=== PATIENT | female | born 1990 | race African-American/Black ===

== ENCOUNTER 2017-06-30 14:31 | Inpatient (IN) | payer MEDICAID, OTHER ==
[~2017-06-30] VITALS: Ht 172.7 cm; Wt 123.8 kg
[~2017-06-30 14:31] MED LIST: FERR-55 PO
[2017-06-30] MEDS ORDERED: ONDANSETRON (ODT) 4 MG TAB ODT STA (16:29)
[2017-06-30] MEDS ORDERED: HYDROCODONE/APAP (5/325) TAB PO ONE (16:30)
[2017-06-30 17:14] LABS: ABNORMAL IP MESSAGE 1; HEMATOCRIT 23.8 % (37.0-47.0); MEAN CORPUSCULAR HEMOGLOBIN 15.3 pg (29.0-33.0); MEAN CORPUSCULAR HGB CONC 26.1 g/dl (32.0-37.0); MEAN CORPUSCULAR VOLUME 58.8 fl (82.0-101.0); PLATELET COUNT 323 10^3/UL (140-415); RED BLOOD COUNT 4.05 10^6/ul (4.20-5.40); RED CELL DISTRIBUTION WIDTH 19.9 % (11.5-14.5); WHITE BLOOD COUNT 5.2 10^3/ul (4.8-10.8)
[2017-06-30 17:17] LABS: HEMOGLOBIN 6.2 g/dl (12.0-16.0); MEAN PLATELET VOLUME 9.7 fl (7.4-10.4); POSITIVE DIFF @See below
[2017-06-30 17:33] LABS: ALBUMIN 4.4 g/dl (3.3-4.9); ALBUMIN/GLOBULIN RATIO 1.22; CALCIUM 9.2 mg/dl (8.4-10.2); CREATININE 0.77 mg/dl (0.44-1.00); POTASSIUM 4.4 mmol/L (3.5-5.1)
[2017-06-30 17:55] LABS: ANISOCYTOSIS 2+ (0-0); EOSINOPHILS % (M) 1 % (0-7); ERYTHROBLAST% (NRBC) (M) 2 % (0-0); HYPOCHROMASIA 3+ (0-0); MICROCYTOSIS 3+ (0-0); MONOCYTES % (M) 2 % (0-11); OVALOCYTES 1+ (0-0); PLATELET ESTIMATE NORMAL; POIKILOCYTOSIS 2+ (0-0); POLYCHROMASIA 2+ (0-0)
--- NOTE | 2017-06-30 18:04 | ERA ---
ER Documentation Chief Complaint Date/Time DATE: 06/30/17 TIME: 17:53 Chief Complaint DIZZY X 2 WEEKS HPI This is a 27-year-old female with a history of menorrhagia, ovarian cysts and chronic anemia requiring previous transfusions who is presenting with dizziness for the last 3 weeks, waxing and waning. Her last menstrual period was approximately 3 weeks ago, immediately prior to the onset of her lightheadedness and dizziness. She does not like going to the emergency department, but her symptoms had persisted, which is what prompted the visit today. She has had similar episodes in the past that were related to anemia that required transfusion. She endorses very mild generalized abdominal discomfort earlier today, but this is currently resolved. She also endorses a mild right sided headache with nausea but no vomiting. She denies vision changes. She denies chest pain or trouble breathing. She does endorse mild lightheadedness. She has had no changes to bowel movements or urination. ROS All systems reviewed and are negative except as per history of present illness. Medications Home Meds Discontinued Reported Medications [none] No Conflict Check no home meds per pt 04/19/11 Discontinued Scripts Ferrous Sulfate* (Ferrous Sulfate*) 325 Mg Tablet, 325 MG PO BID, #60 TAB 3 Refills Prov:AMARILIS JACOBS 08/15/15 Allergies Allergies: Coded Allergies: No Known Allergies (Verified Allergy, Mild, 06/30/17) PMhx/Soc Medical and Surgical Hx: pt denies Surgical Hx History of Surgery: No Anesthesia Reaction: No Hx Neurological Disorder: No Hx Respiratory Disorders: No Hx Cardiac Disorders: No Hx Psychiatric Problems: No Hx Miscellaneous Medical Probl: Yes (Anemia, menorrhagia, ovarian cysts) Hx Alcohol Use: Yes (Occassionally) Hx Substance Use: No Hx Tobacco Use: No FmHx Family History: No diabetes Physical Exam Vitals Vital Signs Date Time Temp Pulse Resp B/P Pulse Ox O2 Delivery O2 Flow Rate FiO2 06/30/17 19:30 71 17 121/73 100 Room Air 06/30/17 18:46 73 19 126/72 100 Room Air 06/30/17 14:52 98.0 98 18 135/86 99 Physical Exam Const: No apparent distress, well-developed, well-nourished Head: Atraumatic Eyes: Normal Conjunctiva ENT: Normal External Ears, Nose and Mouth. Neck: Full range of motion..~ No meningismus. Resp: Clear to auscultation bilaterally Cardio: Regular rate and rhythm, no murmurs Abd: Soft, non tender, non distended, morbid obesity. Normal bowel sounds Skin: No petechiae or rashes Back: No midline or flank tenderness Ext: No cyanosis, or edema Neur: Awake and alert, normal sensation, normal strength Psych: Normal Mood and Affect Result Diagram: 06/30/17 1645 06/30/17 1645 Results 24 hrs Laboratory Tests Test 06/30/17 16:45 06/30/17 19:20 White Blood Count 5.210^3/ul Red Blood Count 4.0510^6/ul Hemoglobin 6.2g/dl Hematocrit 23.8% Mean Corpuscular Volume 58.8fl Mean Corpuscular Hemoglobin 15.3pg Mean Corpuscular Hemoglobin Concent 26.1g/dl Red Cell Distribution Width 19.9% Platelet Count 85049^3/UL Mean Platelet Volume 9.7fl Segmented Neutrophils % (Manual) 61% Lymphocytes % (Manual) 36% Monocytes % (Manual) 2% Eosinophils % (Manual) 1% Nucleated Red Blood Cells % 2% Absolute Lymphocytes (Manual) 1.810^3/ul Absolute Monocytes (Manual) 0.110^3/ul Platelet Estimate NORMAL Polychromasia 2+ Hypochromasia 3+ Poikilocytosis 2+ Anisocytosis 2+ Microcytosis 3+ Ovalocytes 1+ Sodium Level 143mmol/L Potassium Level 4.4mmol/L Chloride Level 108mmol/L Carbon Dioxide Level 26mmol/L Anion Gap 13 Blood Urea Nitrogen 10mg/dl Creatinine 0.77mg/dl Glucose Level 94mg/dl Calcium Level 9.2mg/dl Total Bilirubin 0.0mg/dl Direct Bilirubin 0.00mg/dl Indirect Bilirubin 0.0mg/dl Aspartate Amino Transf (AST/SGOT) 22IU/L Alanine Aminotransferase (ALT/SGPT) 34IU/L Alkaline Phosphatase 131IU/L Troponin I < 0.012ng/ml Total Protein 8.0g/dl Albumin 4.4g/dl Globulin 3.60g/dl Albumin/Globulin Ratio 1.22 Lipase 160U/L Prothrombin Time 14.2Sec Prothrombin Time Ratio 1.1 INR International Normalized Ratio 1.10 Activated Partial Thromboplast Time 29.7Sec Current Medications Medications (Trade) Dose Ordered Sig/Brian Route PRN Reason Start Time Stop Time Status Last Admin Dose Admin Acetaminophen/ Hydrocodone Bitart ([place] (5/325)) 1 tab ONCE ONCE PO 06/30/17 16:30 06/30/17 16:31 DC 06/30/17 16:45 Ondansetron HCl (Zofran Odt) 4 mg ONCE STAT ODT 06/30/17 16:29 06/30/17 16:31 DC 06/30/17 16:45 Procedures/MDM MDM Patient's presentation warrants further investigation. I am concerned of anemia in this patient. An EKG and blood work will be completed. The patient does not endorse rectal bleeding, and I do not suspect a GI bleed in this patient. I do not intend to perform a rectal exam at this time. Patient has no hemoptysis or hematemesis. She has no external skin findings. She has no signs of hematoma. LABS The patient's blood work was obtained and reviewed. The patient seemed shows no leukocytosis or left shift. The patient is afebrile, and I do not suspect a systemic infection. The patient is significantly anemic today with a hemoglobin of 6.2 that will require a transfusion.. The patient's platelet count is unremarkable. The patient's CMP shows no signs of metabolic or electrolyte abnormality. The patient has normal renal and hepatic function testing. EKG EKG read by me: Rate/Rhythm: Regular rhythm, sinus tachycardia at a rate of 109 Intervals: Normal [place]: Normal Impression: No evidence of acute ischemia TREATMENT/DISPOSITION The patient has anemia. Her tachycardia is likely correlated with anemia. Fortunately, the rest of her vital signs are stable, and her tachycardia actually improved on its own. Given the patient's symptomatic anemia, she will require transfusion she has in the past. Risks and benefits were discussed and the patient was consented. She was ordered 1 unit of packed red blood cells. She will be admitted to the hospital for further evaluation and management. The patient will be ordered a pelvic ultrasound on a routine basis for further evaluation. The on-call integration director was called to discuss the case. They will be happy to evaluate the patient in the hospital. Departure Diagnosis: Primary Impression: Anemia Qualified Code: D64.9 - Anemia, unspecified type Additional Impression: Menorrhagia Qualified Code: N92.2 - Excessive menstruation at puberty Condition: Serious CHIP NAJERA MD Jun 30, 2017 18:03
[2017-06-30 20:18] LABS: INR 1.1; PROTIME 14.2 Sec (12.2-14.2); PT RATIO 1.1
[2017-06-30] MEDS ORDERED: ACETAMINOPHEN 325 MG TAB PO PRN (20:30)
[2017-06-30] MEDS ORDERED: ONDANSETRON 4 MG INJ IV PRN (20:30)
[2017-06-30 21:01] VITALS: PULSE 64
--- NOTE | 2017-06-30 21:01 | RADRPT ---
PROCEDURE: US Pelvis. CLINICAL INDICATION: Menorrhagia. Symptomatic anemia. TECHNIQUE: The pelvis was evaluated with transabdominal and transvaginal sonography in the axial a nd sagittal planes. COMPARISON: Pelvic ultrasound dated 08/14/2015. FINDINGS: Uterus: 7.7 x 4.1 x 4.3 cm. Endometrium: 4.6 mm. Right ovary: 3.4 x 3.9 x 3.7 cm. Left ovary: 3.8 x 2.5 x 3.5 cm. Uterine masses: None. Ovarian masses: None. Color Doppler and pulsed Doppler sonography demonstrate normal flow to the ova irvin. Other pelvic masses: None. Free fluid: None. IMPRESSION: 1. Normal pelvic ultrasound. RPTAT: QQ .Gael Michele MD, MD Date Time Electronically viewed and signed by .Gael Michele MD, MD on 06/30/2017 21:00 .R/
[2017-06-30 21:02] LABS: PARTIAL THROMBOPLASTIN TIME 29.7 Sec (25.0-35.0)
[2017-06-30 21:14] VITALS: BP 142/72; RESP 19
[2017-06-30 21:27] VITALS: Ht 172.7 cm; Wt 123.8 kg
[2017-06-30 22:27] VITALS: BP 113/74; RESP 18
[2017-06-30 23:16] VITALS: BP 118/64; RESP 18
--- NOTE | 2017-06-30 23:59 | QN ---
Documentation Comment 27 y.o with long ho of menorrhagia. currently not bleeding vss exam wnl us wnl a/p menorrhagia-chronic Tsh informed pt will need evaluation as outpatient with OBGYN will follow RAMSEY JACKSON MD Jun 30, 2017 23:59
[2017-07-01 02:02] VITALS: BP 137/77; RESP 18
[2017-07-01] MEDS: PANTOPRAZOLE 40 MG INJ IV SCH (05:37)
[2017-07-01] MEDS: ACETAMINOPHEN 325 MG TAB PO PRN ×2 (05:43→19:56)
[2017-07-01 06:16] LABS: ABNORMAL IP MESSAGE 1; BASOPHILS % 0.4 % (0.0-2.0); EOSINOPHILS # 0.1 10^3/ul (0.0-0.5); EOSINOPHILS % 2.1 % (0.0-7.0); HEMATOCRIT 26.8 % (37.0-47.0); HEMOGLOBIN 7.4 g/dl (12.0-16.0); LYMPHOCYTES # 2.2 10^3/ul (0.8-2.9); LYMPHOCYTES % 42.9 % (15.0-51.0); MEAN CORPUSCULAR HEMOGLOBIN 17.5 pg (29.0-33.0); MEAN CORPUSCULAR HGB CONC 27.6 g/dl (32.0-37.0); MEAN CORPUSCULAR VOLUME 63.5 fl (82.0-101.0); MONOCYTE # 0.6 10^3/ul (0.3-0.9); MONOCYTES % 10.9 % (0.0-11.0); NEUTROPHIL # 2.2 10^3/ul (1.6-7.5); NEUTROPHILS % 43.5 % (39.0-77.0); PLATELET COUNT 269 10^3/UL (140-415); RED BLOOD COUNT 4.22 10^6/ul (4.20-5.40); RED CELL DISTRIBUTION WIDTH 25.1 % (11.5-14.5); WHITE BLOOD COUNT 5.2 10^3/ul (4.8-10.8)
[2017-07-01 07:00] LABS: POSITIVE DIFF @See below
[2017-07-01 07:45] LABS: CALCIUM 8.4 mg/dl (8.4-10.2); CREATININE 0.75 mg/dl (0.44-1.00); POTASSIUM 4.4 mmol/L (3.5-5.1)
[2017-07-01 08:09] VITALS: BP 112/74; RESP 16
--- NOTE | 2017-07-01 11:23 | HP ---
Date/Time of Note Date/Time of Note DATE: 07/01/17 TIME: 11:17 Assessment/Plan VTE Prophylaxis VTE Prophylaxis Intervention: ambulation Lines/Catheters [facility] Saline Lock Urinary Cath still in place: No Assessment/Plan Chief Complaint/Hosp Course 1. severe anemia 2. Ovarian cyst 3. Hs of headaches 4. [place] and metrorrhagia. 5. Morbid obesity Problems: Assessment/Plan 1. Pt was seen fiberglass insulation installer today 2. Start pt on IV Iron supplement 3. iron panel tomorrow 4. hematology consult 5. US pelvis negative HPI/ROS Admit Date/Time Admit Date/Time Jun 30, 2017 at 20:08 Hx of Present Illness This is a 27-year-old female with a history of menorrhagia, ovarian cysts and chronic anemia requiring previous transfusions who is presenting with dizziness for the last 3 weeks. Her last menstrual period was approximately 3 weeks ago, immediately prior to the onset of her lightheadedness and dizziness. Pt has had similar episodes in the past that were related to anemia that required transfusion for 4 times. In ER pt [id number] mild generalized abdominal discomfort, but this was resolved. She also endorses a mild right sided headache with nausea but no vomiting. She denies vision changes. She denies chest pain or trouble breathing. She does endorse mild lightheadedness. She has had no changes to bowel movements or urination. ROS Constitutional: no complaints Respiratory: no complaints Cardiovascular: no complaints Genitourinary: bleeding, discharge, dysuria, flank pain, hematuria, no complaints, other (ovarian cyst) Musculoskeletal: back pain, bone/joint pain, No neck pain, No no complaints, No other, No restricted range of motion, No swelling Skin: bruising, erythema, pruritis, rash, No laceration, No no complaints, No other, No skin lesions Neurologic: confusion, dizziness, headache, syncope, No focal-weakness, No no complaints, No other, No seizure Lymphatic: adenopathy, No lymphadema, No no complaints, No other, No tender nodes Psychological: anxiety, confusion, depression, No nl mood/affect, No no complaints, No other, No suicidal PMH/Family/Social Past Medical History Medical History: other (anemia, ovarian cyst) Past Surgical History Past Surgical Hx: no surgical history Family History Significant Family History: diabetes (mother) Social History Alcohol Use: rarely Smoking Status: Never smoker Drug Use: none Exam/Review of Systems Vital Signs Vitals Vital Signs Date Time Temp Pulse Resp B/P Pulse Ox O2 Delivery O2 Flow Rate FiO2 07/01/17 08:09 98.2 67 16 112/74 100 07/01/17 07:40 Nasal Cannula 2.0 Intake and Output 06/30/17 06/30/17 07/01/17 15:00 23:00 07:00 Intake Total 1200 ml Balance 1200 ml Exam Constitutional: alert, oriented Head: atraumatic, normocephalic ENMT: nl external ears & nose Neck: supple Respiratory: clear to auscultation Gastrointestinal: soft Genitourinary - Female: nl adnexae, nl external genitalia Musculoskeletal: nl extremities to inspection Extremities: normal pulses Neurological: PROGRAM SUPPORT SPECIALIST II-XII intact Labs Result Diagram: 07/01/1742007/01/17420 Medications Medications Current Medications Pantoprazole (Protonix Iv) 40 mg DAILY@06 IV Last administered on 07/01/17 05: 37; Admin Dose 40 MG; Start 07/01/17 at 06:00 Acetaminophen (Tylenol Tab) 650 mg Q6H PRN PO PAIN AND OR ELEVATED TEMP Last administered on 07/01/17 05:43; Admin Dose 650 MG; Start 06/30/17 at 22:30 DAVID DE LA CRUZ Jul 01, 2017 11:23
[2017-07-01] MEDS: SOD FERRIC GLUC COMPLX 125 MG in SOD CHLORIDE 0.9% 100 ML IVPB SCH (13:51)
[2017-07-01 14:00] VITALS: BP 118/73; RESP 18
--- NOTE | 2017-07-01 16:11 | QN ---
Documentation Comment Laborist Progress Note HD #1 27 y.o. with a recent h/o menometrorrhagia and severe symptomatic anemia. Pt reports that she still has a headache. Tylenol helps but it comes right back. No current bleeding.Pt states her periods were normal most of her life and kristie more recently have become abnormal. She has been given iron in the past but got very constipated so stopped taking it.She has always used condoms for control and has never taken oral contraceptives. Pt does not currently have a OIL SPRAYER. Hgb 6.2 on admit and is now 7.4 after 2 units of packed cells. Pelvic US was normal. Pt is currently receiving IV iron therapy.Pt believes she will be able to go home soon if her next blood levels have risen. P: Consider 2 more units of packed cells to get pt out of the hospital sooner and to get rid of her headache. Pt will need a referral within her HMO network to get to a OIL SPRAYER for ongoing care.Explained to the pt all of the different options to regulate her cycle including OCP's, cyclic progesterone, Depo-Provera injections, Mirena IUD and assisted options such as hydrothermal ablation or a hysterectomy. The pt does not desire future fertility. EMIR ROLDAN MD Jul 01, 2017 16:11
[2017-07-01 20:04] VITALS: BP 118/74; RESP 18
[2017-07-02 02:06] VITALS: BP 134/86; RESP 19
[2017-07-02] MEDS: PANTOPRAZOLE 40 MG INJ IV SCH (05:09)
[2017-07-02 06:19] LABS: ABNORMAL IP MESSAGE 1; BASOPHILS % 0.6 % (0.0-2.0); EOSINOPHILS # 0.2 10^3/ul (0.0-0.5); EOSINOPHILS % 3.7 % (0.0-7.0); HEMATOCRIT 25.7 % (37.0-47.0); LYMPHOCYTES % 37.1 % (15.0-51.0); MEAN CORPUSCULAR HEMOGLOBIN 17.2 pg (29.0-33.0); MEAN CORPUSCULAR HGB CONC 27.2 g/dl (32.0-37.0); MEAN PLATELET VOLUME 9.8 fl (7.4-10.4); MONOCYTE # 0.5 10^3/ul (0.3-0.9); MONOCYTES % 9.4 % (0.0-11.0); NEUTROPHIL # 2.6 10^3/ul (1.6-7.5); NEUTROPHILS % 48.6 % (39.0-77.0); PLATELET COUNT 265 10^3/UL (140-415); RED BLOOD COUNT 4.08 10^6/ul (4.20-5.40); RED CELL DISTRIBUTION WIDTH 25.2 % (11.5-14.5); WHITE BLOOD COUNT 5.4 10^3/ul (4.8-10.8)
[2017-07-02 06:52] LABS: CALCIUM 8.8 mg/dl (8.4-10.2); CREATININE 0.81 mg/dl (0.44-1.00); POSITIVE DIFF @See below; POTASSIUM 4.2 mmol/L (3.5-5.1)
[2017-07-02 06:56] LABS: IRON 36 ug/dl (35-150)
[2017-07-02 07:05] LABS: TOTAL IRON BINDING CAPACITY 375 ug/dl (241-421)
[2017-07-02 08:20] VITALS: BP 120/72; RESP 18
--- NOTE | 2017-07-02 10:50 | PN ---
Date/Time of Note Date/Time of Note DATE: 07/02/17 TIME: 10:48 Assessment/Plan VTE Prophylaxis VTE Prophylaxis Intervention: ambulation Lines/Catheters [facility] Saline Lock Urinary Cath still in place: No Assessment/Plan Chief Complaint/Hosp Course 1. severe anemia, better. Iron deficiency 2. Morbid obesity 3. Hs of headaches 4. [place] and metrorrhagia. Problems: Assessment/Plan 1. Continue Iron complex IVPB 2. Case management to arrange business systems administrator per HMO 3. Start control pills to regulate cycle 4. Outpatient iron supplement Subjective 24 Hr Interval Summary Constitutional: improved, no complaints Exam/Review of Systems Vital Signs Vitals Vital Signs Date Time Temp Pulse Resp B/P Pulse Ox O2 Delivery O2 Flow Rate FiO2 07/02/17 08:30 Nasal Cannula 2.0 07/02/17 08:20 98.5 64 18 120/72 99 Intake and Output 07/01/17 07/01/17 07/02/17 15:00 23:00 07:00 Intake Total 110 ml 1840 ml 300 ml Balance 110 ml 1840 ml 300 ml Exam Constitutional: alert, oriented Respiratory: clear to auscultation Cardiovascular: regular rate and rhythm Results Result Diagram: 07/02/17 0530 07/02/17 0530 Results 24 hrs Laboratory Tests Test 07/02/17 05:30 White Blood Count 5.4 Red Blood Count 4.08 L Hemoglobin 7.0 L Hematocrit 25.7 L Mean Corpuscular Volume 63.0 L Mean Corpuscular Hemoglobin 17.2 L Mean Corpuscular Hemoglobin Concent 27.2 L Red Cell Distribution Width 25.2 H Platelet Count 265 Mean Platelet Volume 9.8 Neutrophils % 48.6 Lymphocytes % 37.1 Monocytes % 9.4 Eosinophils % 3.7 Basophils % 0.6 Nucleated Red Blood Cells % 0.0 Neutrophils # 2.6 Lymphocytes # 2.0 Monocytes # 0.5 Eosinophils # 0.2 Basophils # 0.0 Nucleated Red Blood Cells # 0.0 Sodium Level 139 Potassium Level 4.2 Chloride Level 107 Carbon Dioxide Level 28 Anion Gap 8 Blood Urea Nitrogen 10 Creatinine 0.81 Glucose Level 93 Calcium Level 8.8 Iron Level 36 Total Iron Binding Capacity 375 Percent Iron Saturation 10 L Medications Medications Current Medications Pantoprazole (Protonix Iv) 40 mg DAILY@06 IV Last administered on 07/02/17 05: 09; Admin Dose 40 MG; Start 07/01/17 at 06:00 Acetaminophen 650 mg 650 mg Q6H PRN PO PAIN AND OR ELEVATED TEMP Last administered on 07/01/17 19:56; Admin Dose 650 MG; Start 06/30/17 at 22:30 Ferric Sodium Gluconate Complex/ Sodium Chloride (Ferrlecit/NS) 110 ml @ 100 mls/hr Q24H IVPB Last administered on 07/01/17 13:51; Admin Dose 100 MLS/HR; Start 07/01/17 at 13:00; Stop 07/03/17 at 14:05 DAVID DE LA CRUZ Jul 02, 2017 10:50
[2017-07-02] MEDS: FERROUS SULFATE (EC) 325 MG TAB PO SCH ×2 (13:17→20:33)
[2017-07-02] MEDS: SOD FERRIC GLUC COMPLX 125 MG in SOD CHLORIDE 0.9% 100 ML IVPB SCH (13:17)
[2017-07-02 14:28] VITALS: BP 125/84; RESP 18
[2017-07-02 14:53] LABS: FERRITIN 22.9 ng/ml (6.2-137.0)
--- NOTE | 2017-07-02 17:22 | QN ---
Documentation Comment patient is seen at the bedside,Patient is stable afebrile NO VB Abd soft NT ND Genitalia No blood at perinium --->A possible need for D&C&Hysteroscopy and possible endometrial biopsyand improtance of for R/u Cancer discussed with patient and patient is going to follow up on that as outpatient with her Mosaic Tile Maker physician --->different options to regulate her cycle including OCP's, cyclic progesterone , Depo-Provera injections, Mirena IUD and fpc options such as hydrothermal ablation or a hysterectomy. patient desires febrility and denies any surgical option CHELY MONTANO M.D. Jul 02, 2017 17:22
[2017-07-02] MEDS: ACETAMINOPHEN 325 MG TAB PO PRN (19:01)
[2017-07-02 19:56] VITALS: BP 124/70; RESP 18
[2017-07-03 02:24] VITALS: BP 130/79; RESP 18
[2017-07-03] MEDS: PANTOPRAZOLE 40 MG INJ IV SCH (05:07)
[2017-07-03] MEDS: ACETAMINOPHEN 325 MG TAB PO PRN (05:07)
[2017-07-03 05:49] LABS: ABNORMAL IP MESSAGE 1; BASOPHIL # 0.1 10^3/ul (0.0-0.1); BASOPHILS % 0.6 % (0.0-2.0); EOSINOPHILS # 0.2 10^3/ul (0.0-0.5); EOSINOPHILS % 3.1 % (0.0-7.0); HEMATOCRIT 30.6 % (37.0-47.0); HEMOGLOBIN 8.8 g/dl (12.0-16.0); LYMPHOCYTES # 2.4 10^3/ul (0.8-2.9); LYMPHOCYTES % 30.2 % (15.0-51.0); MEAN CORPUSCULAR HEMOGLOBIN 18.8 pg (29.0-33.0); MEAN CORPUSCULAR HGB CONC 28.8 g/dl (32.0-37.0); MEAN CORPUSCULAR VOLUME 65.4 fl (82.0-101.0); MEAN PLATELET VOLUME 9.6 fl (7.4-10.4); MONOCYTE # 0.6 10^3/ul (0.3-0.9); MONOCYTES % 7.8 % (0.0-11.0); NEUTROPHIL # 4.4 10^3/ul (1.6-7.5); NEUTROPHILS % 56.6 % (39.0-77.0); NUCLEATED RED BLOOD CELLS% 0.4 /100WBC (0.0-0.0); PLATELET COUNT 253 10^3/UL (140-415); RED BLOOD COUNT 4.68 10^6/ul (4.20-5.40); WHITE BLOOD COUNT 7.8 10^3/ul (4.8-10.8)
[2017-07-03 05:55] LABS: POSITIVE DIFF @See below
[2017-07-03 08:05] VITALS: BP 126/84; RESP 18
[2017-07-03] MEDS: FERROUS SULFATE (EC) 325 MG TAB PO SCH ×2 (08:17→21:20)
--- NOTE | 2017-07-03 13:49 | CONS ---
Date/Time of Note Date/Time of Note DATE: 07/03/17 TIME: 13:38 Assessment/Plan Assessment/Plan Chief Complaint/Hosp Course 27 yo female with #Anemia -labs are most consistent with iron deficiency from menorrhagia -normal LDH makes hemolysis unlikely -Vitamin b12 and folate are within normal limits -TSH within normal limits -epo level pending but patient has very little clinical evidence for MDS or anemia from CKD -SPEP pending to evaluate for underlying monoclonal gammopathy -continue IV iron #Menorrhagia -pt to see KNUCKLE BENDER as an outpatient -she definitely needs intervention for her heavy periods -agree with starting OCP's Problems: Consultation Date/Type/Reason Admit Date/Time Jun 30, 2017 at 20:08 Date of Consultation: Jul 03, 2017 Type of Consultation: Hematology Reason for Consultation iron deficiency anemia Referring Provider: FIGUEROA TINOCO Hx of Present Illness This is a 27-year-old female who was initially admitted on with severe anemia with a Hg around 6. PT states she had a constant period from 05/18 -06/11, then stopped bleeding for 1 week. Then again bled from 06/18 onwards. Pt sates she has had menorrhagia and has been evaluated by KNUCKLE BENDER who has advised the patient to start OCPs. Over the past 4 years pt has required 4 blood transfusion. On admission pt was noted to be dizzy and light headed. She has since received 4 units of PRBCs and her Hg has risen to > 8. We have been consulted for further workup of her anemia. Constitutional: improved, no complaints Respiratory: no complaints Cardiovascular: no complaints Genitourinary: bleeding, discharge, dysuria, flank pain, hematuria, no complaints, other (ovarian cyst) Musculoskeletal: back pain, bone/joint pain, No neck pain, No no complaints, No other, No restricted range of motion, No swelling Skin: bruising, erythema, pruritis, rash, No laceration, No no complaints, No other, No skin lesions Neurologic: confusion, dizziness, headache, syncope, No focal-weakness, No no complaints, No other, No seizure Lymphatic: adenopathy, No lymphadema, No no complaints, No other, No tender nodes Psychological: anxiety, confusion, depression, No nl mood/affect, No no complaints, No other, No suicidal Past Medical History Medical History: other (anemia, ovarian cyst) Past Surgical History Past Surgical Hx: no surgical history Family History Significant Family History: no pertinent family hx Social History Alcohol Use: rarely Smoking Status: Never smoker Drug Use: none Exam/Review of Systems Vital Signs Vitals Vital Signs Date Time Temp Pulse Resp B/P Pulse Ox O2 Delivery O2 Flow Rate FiO2 07/03/17 08:05 98.5 66 18 126/84 99 07/02/17 08:30 Nasal Cannula 2.0 Intake and Output 07/02/17 07/02/17 07/03/17 15:00 23:00 07:00 Intake Total 110 ml 860 ml 790 ml Output Total 350 ml Balance 110 ml 510 ml 790 ml Exam Constitutional: alert, oriented Psych: nl mood/affect, no complaints Head: normocephalic Eyes: nl conjunctiva ENMT: nl external ears & nose Neck: non-tender, supple Respiratory: clear to auscultation, normal air movement Cardiovascular: regular rate and rhythm Gastrointestinal: soft Musculoskeletal: nl extremities to inspection, nl gait and stance Extremities: normal pulses Results Result Diagram: 07/03/1752607/02/17 0530 Results 24 hrs Laboratory Tests Test 07/03/17 05:27 07/03/17 05:27 White Blood Count 7.8 # Red Blood Count 4.68 Hemoglobin 8.8 #L Hematocrit 30.6 L Mean Corpuscular Volume 65.4 L Mean Corpuscular Hemoglobin 18.8 L Mean Corpuscular Hemoglobin Concent 28.8 L Red Cell Distribution Width 27.0 H Platelet Count 253 Mean Platelet Volume 9.6 Neutrophils % 56.6 Lymphocytes % 30.2 Monocytes % 7.8 Eosinophils % 3.1 Basophils % 0.6 Nucleated Red Blood Cells % 0.4 H Neutrophils # 4.4 Lymphocytes # 2.4 Monocytes # 0.6 Eosinophils # 0.2 Basophils # 0.1 Nucleated Red Blood Cells # 0.0 Lab Scanned Report BLOOD TRANSFUSION Medications Medications Current Medications Pantoprazole (Protonix Iv) 40 mg DAILY@06 IV Last administered on 07/03/17 05: 07; Admin Dose 40 MG; Start 07/01/17 at 06:00 Acetaminophen 650 mg 650 mg Q6H PRN PO PAIN AND OR ELEVATED TEMP Last administered on 07/03/17 05:07; Admin Dose 650 MG; Start 06/30/17 at 22:30 Ferric Sodium Gluconate Complex/ Sodium Chloride (Ferrlecit/NS) 110 ml @ 100 mls/hr Q24H IVPB Last administered on 07/02/17 13:17; Admin Dose 100 MLS/HR; Start 07/01/17 at 13:00; Stop 07/03/17 at 14:05 Ferrous Sulfate (Ferrous Sulfate (Ec)) 325 mg BID PO Last administered on 08:17; Admin Dose 325 MG; Start 07/02/17 at 12:00 MAGUE AVENDANO M.D. Jul 03, 2017 13:49
[2017-07-03] MEDS: SOD FERRIC GLUC COMPLX 125 MG in SOD CHLORIDE 0.9% 100 ML IVPB SCH (14:03)
--- NOTE | 2017-07-03 14:28 | PN ---
Date/Time of Note Date/Time of Note DATE: 07/03/17 TIME: 14:22 Assessment/Plan VTE Prophylaxis VTE Prophylaxis Intervention: contraindicated Lines/Catheters [facility] Saline Lock Urinary Cath still in place: No Assessment/Plan Chief Complaint/Hosp Course 27 y/o with # Severe anemia labs are most consistent with iron deficiency from menorrhagia # Menorrhagia # Hx Headaches # Obesity Recs -normal LDH makes hemolysis unikely;-Vitamin b12 and folate are within normal limits -epo level pending -SPEP pending to evaluate for underlying monoclonal gammopathy - continue IV iron/ Po Fe - Will talk to Embossing Machine Operator Helper for OCP in house - Case management consult to arrange for HMO Obgyn - Baclofen prn muscle spasms Problems: Subjective 24 Hr Interval Summary Free Text/Dictation Pt is having back spasms Exam/Review of Systems Vital Signs Vitals Vital Signs Date Time Temp Pulse Resp B/P Pulse Ox O2 Delivery O2 Flow Rate FiO2 07/03/17 08:05 98.5 66 18 126/84 99 07/02/17 08:30 Nasal Cannula 2.0 Intake and Output 07/02/17 07/02/17 07/03/17 15:00 23:00 07:00 Intake Total 110 ml 860 ml 790 ml Output Total 350 ml Balance 110 ml 510 ml 790 ml Exam Constitutional: alert, oriented Respiratory: clear to auscultation Cardiovascular: regular rate and rhythm Results Result Diagram: 07/03/17 0527 07/02/17 0530 Results 24 hrs Laboratory Tests Test 07/03/17 05:27 07/03/17 05:27 07/03/17 11:45 White Blood Count 7.8 # Red Blood Count 4.68 Hemoglobin 8.8 #L Hematocrit 30.6 L Mean Corpuscular Volume 65.4 L Mean Corpuscular Hemoglobin 18.8 L Mean Corpuscular Hemoglobin Concent 28.8 L Red Cell Distribution Width 27.0 H Platelet Count 253 Mean Platelet Volume 9.6 Neutrophils % 56.6 Lymphocytes % 30.2 Monocytes % 7.8 Eosinophils % 3.1 Basophils % 0.6 Nucleated Red Blood Cells % 0.4 H Neutrophils # 4.4 Lymphocytes # 2.4 Monocytes # 0.6 Eosinophils # 0.2 Basophils # 0.1 Nucleated Red Blood Cells # 0.0 Lab Scanned Report BLOOD TRANSFUSION Stool Occult Blood NEGATIVE Medications Medications Current Medications Pantoprazole (Protonix Iv) 40 mg DAILY@06 IV Last administered on 07/03/17 05: 07; Admin Dose 40 MG; Start 07/01/17 at 06:00 Acetaminophen (Tylenol Tab) 650 mg Q6H PRN PO PAIN AND OR ELEVATED TEMP Last administered on 07/03/17 05:07; Admin Dose 650 MG; Start 06/30/17 at 22:30 Ferrous Sulfate (Ferrous Sulfate (Ec)) 325 mg BID PO Last administered on 08:17; Admin Dose 325 MG; Start 07/02/17 at 12:00 Baclofen (Lioresal) 5 mg BID PRN PO spasms; Start 07/03/17 at 14:30; Status UNMARILU DOWNING MD Jul 03, 2017 14:28
[2017-07-03] MEDS ORDERED: BACLOFEN 10 MG TAB PO PRN (14:30)
[2017-07-03 14:31] VITALS: BP 140/85; RESP 18
--- NOTE | 2017-07-03 18:48 | QN ---
Documentation Comment pt doing well vss a/p chronic menorhagia-stable will need outpatient obgyn evaluation RAMSEY JACKSON MD Jul 03, 2017 18:48
[2017-07-03 19:48] VITALS: BP 134/81; RESP 18
[2017-07-04 02:10] VITALS: BP 135/83; RESP 18
[2017-07-04] MEDS ORDERED: PANTOPRAZOLE (EC) 40 MG TAB PO SCH (06:00)
[2017-07-04 06:31] LABS: ABNORMAL IP MESSAGE 1; BASOPHIL # 0.1 10^3/ul (0.0-0.1); BASOPHILS % 0.5 % (0.0-2.0); EOSINOPHILS # 0.2 10^3/ul (0.0-0.5); EOSINOPHILS % 2.1 % (0.0-7.0); HEMATOCRIT 32.1 % (37.0-47.0); HEMOGLOBIN 9.2 g/dl (12.0-16.0); LYMPHOCYTES # 2.3 10^3/ul (0.8-2.9); LYMPHOCYTES % 24.5 % (15.0-51.0); MEAN CORPUSCULAR HEMOGLOBIN 19.1 pg (29.0-33.0); MEAN CORPUSCULAR HGB CONC 28.7 g/dl (32.0-37.0); MEAN CORPUSCULAR VOLUME 66.6 fl (82.0-101.0); MEAN PLATELET VOLUME 9.6 fl (7.4-10.4); MONOCYTE # 0.7 10^3/ul (0.3-0.9); MONOCYTES % 7.3 % (0.0-11.0); NEUTROPHILS % 64.5 % (39.0-77.0); NUCLEATED RED BLOOD CELLS% 0.3 /100WBC (0.0-0.0); PLATELET COUNT 242 10^3/UL (140-415); RED BLOOD COUNT 4.82 10^6/ul (4.20-5.40); RED CELL DISTRIBUTION WIDTH 28.7 % (11.5-14.5); WHITE BLOOD COUNT 9.3 10^3/ul (4.8-10.8)
[2017-07-04 06:50] LABS: POSITIVE DIFF @See below
[2017-07-04 07:35] VITALS: BP 128/77; RESP 16
[2017-07-04] MEDS: FERROUS SULFATE (EC) 325 MG TAB PO SCH (09:00)
--- NOTE | 2017-07-04 11:14 | PN ---
Date/Time of Note Date/Time of Note DATE: 07/04/17 TIME: 11:12 Assessment/Plan VTE Prophylaxis VTE Prophylaxis Intervention: contraindicated Lines/Catheters IV Catheter Type (from [facility]): [facility] Lock Urinary Cath still in place: No Assessment/Plan Chief Complaint/Hosp Course 27 y/o with # Severe anemia labs are most consistent with iron deficiency from menorrhagia # Menorrhagia # Hx Headaches # Obesity Recs -normal LDH makes hemolysis unikely;-Vitamin b12 and folate are within normal limits - c/w Fe po - Spoke to Dr Viky hendricks to dc today on megesterol 40 mg x 20 days - Case management consult to arrange for HMO Obgyn - d/c home, HB Stable 9.2 Problems: Subjective 24 Hr Interval Summary Free Text/Dictation Feels better today Hb up to 9.2 Exam/Review of Systems Vital Signs Vitals Vital Signs Date Time Temp Pulse Resp B/P Pulse Ox O2 Delivery O2 Flow Rate FiO2 07/04/17 07:35 98.3 63 16 128/77 100 07/02/17 08:30 Nasal Cannula 2.0 Intake and Output 07/03/17 07/03/17 07/04/17 15:00 23:00 07:00 Intake Total 1360 ml 300 ml Balance 1360 ml 300 ml Exam Constitutional: alert, oriented Respiratory: clear to auscultation Cardiovascular: regular rate and rhythm Results Result Diagram: 07/04/17 0441 07/02/17 0530 Results 24 hrs Laboratory Tests Test 07/03/17 11:45 07/04/17 04:41 07/04/17 05:41 Stool Occult Blood NEGATIVE White Blood Count 9.3 Red Blood Count 4.82 Hemoglobin 9.2 L Hematocrit 32.1 L Mean Corpuscular Volume 66.6 L Mean Corpuscular Hemoglobin 19.1 L Mean Corpuscular Hemoglobin Concent 28.7 L Red Cell Distribution Width 28.7 H Platelet Count 242 Mean Platelet Volume 9.6 Neutrophils % 64.5 Lymphocytes % 24.5 Monocytes % 7.3 Eosinophils % 2.1 Basophils % 0.5 Nucleated Red Blood Cells % 0.3 H Neutrophils # 6.0 Lymphocytes # 2.3 Monocytes # 0.7 Eosinophils # 0.2 Basophils # 0.1 Nucleated Red Blood Cells # 0.0 Lab Scanned Report BLOOD TRANSFUSION Medications Medications Current Medications Acetaminophen (Tylenol Tab) 650 mg Q6H PRN PO PAIN AND OR ELEVATED TEMP Last administered on 07/03/17 05:07; Admin Dose 650 MG; Start 06/30/17 at 22:30 Ferrous Sulfate (Ferrous Sulfate (Ec)) 325 mg BID PO Last administered on 09:00; Admin Dose 325 MG; Start 07/02/17 at 12:00 Baclofen (Lioresal) 5 mg BID PRN PO spasms Last administered on 07/03/17 15:47 ; Admin Dose 5 MG; Start 07/03/17 at 14:30 Pantoprazole (Protonix Tab) 40 mg DAILY@06 PO Last administered on 07/04/17 05 :14; Admin Dose 40 MG; Start 07/04/17 at 06:00 MARILU BLOCK MD Jul 04, 2017 11:14
--- NOTE | 2017-07-04 11:19 | PDOCDIS ---
Discharge Instructions DIAGNOSIS Discharge Diagnosis Mennorhagia Fe deficency anemia CONDITION Patient Condition: Fair HOME CARE INSTRUCTIONS: Diet Instructions: Low Fat /CholesterolSpecial Diet: Regular ACTIVITY: Activity Restrictions: Slowly Increase Activity FOLLOW UP/APPOINTMENTS Follow-up Plan f/u Obgyn IN 1-2 weeks Return to ER IF has excessive bleeding, weakness, sob , dizziness MARILU BLOCK MD Jul 04, 2017 11:19
[2017-07-04] MEDS ORDERED: DOCU-144 PO (11:24)
[2017-07-04] MEDS ORDERED: FER325 PO (11:24)
[2017-07-04] MEDS ORDERED: MEGE40TA17 PO (11:24)
--- NOTE | 2017-07-04 19:12 | DS ---
DATE OF ADMISSION: 06/30/2017 DATE OF DISCHARGE: 07/04/2017 HISTORY OF PRESENT ILLNESS AND HOSPITAL COURSE: The patient is a 27-year-old female with a past medical history of menorrhagia, ovarian cysts, and chronic anemia requiring previous transfusion, presented with dizziness for the last past week. The patient said that her menstrual period was 3 weeks ago, immediately prior to onset of her lightheadedness and dizziness. Had similar episodes in the past that were related to anemia and required transfusion for 4 times. In the Emergency Room, the patient had some mild generalized abdominal discomfort that was resolved, and she also has some right-sided headache and nausea, but no vomiting. On admission, vital signs were stable. Exam was nonfocal. The patient's hemoglobin was 7.4. The patient was to found to be severely iron deficient. Was started on IV iron. The patient also received her 2 units of blood the 1st day. The next day, the hemoglobin was again 7.0, received another 2 units of blood. Hemoglobin came up to 8.8, and then finally came to 9.0. The patient was also seen by Dr. Fatou Hill for Hematology consultation. The patient has normal LDH, which makes hemolysis unlikely. Vitamin B12 and folate within normal limits. TSH within normal limits. She also recommended to continue with the IV iron. The patient was also seen by Dr. Gamboa with [facility] [employer] consultation. There was a possible need of D and C and hysteroscopy and possible endometrial biopsy. The patient was discussed the procedure; however, she wanted to follow up as an outpatient. Different options were also discussed including OCPs, cyclic, progesterone, Depo-Provera and Mirena IUD. The patient was currently stable. Continued on IV iron and as per Dr. Gamboa, the patient is stable to go on megestrol for 20 days. FINAL DIAGNOSES: 1. Severe iron deficiency anemia, likely secondary from menorrhagia. Pelvic ultrasound was normal. 2. Iron deficiency anemia. 3. Obesity. DISCHARGE MEDICATIONS: 1. Megestrol 40 mg p.o. daily for 20 days. 2. Iron sulfate 325 p.o. b.i.d. 3. Colace 100 mg p.o. b.i.d. p.r.n. constipation. FOLLOWUP: Arrangements were done for followup with [facility] as an outpatient in 1-2 weeks. The patient was instructed to return to the Emergency Room if she has dizziness, chest pain, shortness of breath, weakness and excessive menorrhagia. Dictated By: MD RAY Arriaga/jaxon/ying /Document#: [id number]
[2017-07-04 23:32] LABS: ALBUMIN 3.7 g/dL (3.8-4.8)
== END 2017-07-04 12:06 | disposition home or self-care (01) | DRG 812 ==
LOC: FTE 14:31 → PP2 20:08
PROVIDERS: ADMIT Internal Medicine Nephrology; ATTEND Internal Medicine Nephrology
PROC: 30233N1 Transfusion of Nonautologous Red Blood Cells into Peripheral Vein, Percutaneous Approach (ICD-10-PCS; principal; 2017-06-30)
PROC: 30233N1 Transfusion of Nonautologous Red Blood Cells into Peripheral Vein, Percutaneous Approach (ICD-10-PCS; 2017-07-02)
DX: D50.0 Iron deficiency anemia secondary to blood loss (chronic) (principal); Z68.41 Body mass index [BMI] 40.0-44.9, adult; N92.1 Excessive and frequent menstruation with irregular cycle; E66.01 Morbid (severe) obesity due to excess calories
CPT/HCPCS: 36430; 76830; 76856; 80048; 80053; 82270; 82607; 82668; 82728; 82746; 83010; 83540; 83615; 83690; 84155; 84165; 84443; 84484; 85025; 85610; 85730; 86850; 86900; 86901; 86920; 93005; C9113; J2916; P9016